=== PATIENT | female | born 1990 | race Caucasian/White ===

== ENCOUNTER 2018-04-10 19:57 | Emergency (ER) | payer OTHER ==
[~2018-04-10] VITALS: Ht 149.9 cm; Wt 59.0 kg
[~2018-04-10 19:57] MED LIST: MACROBID 100 M100 MG PO; PHENERGAN25 MG/ML
[2018-04-11] MEDS ORDERED: PROGESTERONE200 MG PO (02:43)
[2018-04-11] MEDS ORDERED: PEPCID40 MG PO (02:43)
== END 2018-04-11 03:00 | disposition home or self-care (01) ==
LOC: ER 19:57
DX: O20.0 Threatened abortion (principal); O26.891 Other specified pregnancy related conditions, first trimester; K29.70 Gastritis, unspecified, without bleeding; Z34.01 Encounter for supervision of normal first pregnancy, first trimester

== ENCOUNTER 2021-02-28 08:58 | Emergency (ER) | payer OTHER ==
[~2021-02-28] VITALS: Ht 152.4 cm; Wt 47.2 kg
[~2021-02-28 08:58] MED LIST changes: +PEPCID40 MG PO; +PROGESTERONE200 MG PO
[2021-02-28] MEDS ORDERED: PERCOCET 5-3251 EACH PO (17:03)
[2021-02-28] MEDS ORDERED: PEPCID AC20 MG PO (17:03)
[2021-02-28] MEDS ORDERED: OMEPRAZOLE40 MG PO (17:03)
[2021-03-01] MEDS ORDERED: CIPRO500 MG PO (20:46)
[2021-03-01] MEDS ORDERED: ZOFRAN8 MG PO (20:46)
== END 2021-02-28 17:35 | disposition home or self-care (01) ==
LOC: ER 08:58
DX: K29.70 Gastritis, unspecified, without bleeding (principal); E86.0 Dehydration; R10.11 Right upper quadrant pain

== ENCOUNTER 2021-03-01 09:08 | Emergency (ER) | payer OTHER ==
[~2021-03-01] VITALS: Ht 149.9 cm; Wt 47.2 kg
[~2021-03-01 09:08] MED LIST changes: +OMEPRAZOLE40 MG PO; +PEPCID AC20 MG PO; +PERCOCET 5-3251 EACH PO
[2021-03-01] MEDS ORDERED: ZOFRAN8 MG PO (20:46)
[2021-03-01] MEDS ORDERED: CIPRO500 MG PO (20:46)
== END 2021-03-01 21:03 | disposition home or self-care (01) ==
LOC: ER 09:08
DX: K29.70 Gastritis, unspecified, without bleeding (principal); D18.03 Hemangioma of intra-abdominal structures; R10.84 Generalized abdominal pain

== ENCOUNTER 2021-06-11 14:24 | Emergency (ER) | payer OTHER ==
[~2021-06-11] VITALS: Ht 124.5 cm; Wt 45.4 kg
[~2021-06-11 14:24] MED LIST changes: +CIPRO500 MG PO; +ZOFRAN8 MG PO
== END 2021-06-11 22:23 | disposition home or self-care (01) ==
LOC: ER 14:24
DX: K29.60 Other gastritis without bleeding (principal)